=== PATIENT | female | born 1985 | race Caucasian/White ===

== ENCOUNTER 2018-12-06 18:32 | Emergency (ER) | payer BC, OTHER ==
[2018-12-06] MEDS ORDERED: Lidocaine 1% with EPINEPHrine 1:100,000 10 ML MDV INFILT ONE (18:33)
[2018-12-06] MEDS ORDERED: Diphtheria,Pertussis(Acell),Tetanus Vaccine 0.5 ML SDV IM ONE (19:00)
[2018-12-06 19:31] VITALS: BP 115/70
--- NOTE | 2018-12-06 19:38 | EDM.PDOC ---
ED HPI GENERAL MEDICAL PROBLEM - General Chief Complaint: Laceration Stated Complaint: LACERATION ON TOP OF LT HAND Time Seen by Provider: 12/06/18 18:50 Source of Information: Reports: Patient, Family History Limitations: Reports: No Limitations - History of Present Illness INITIAL COMMENTS - FREE TEXT/NARRATIVE: Darlin comes into [facility] ED with lacerations to the L hand from broken glassware while washing dishes this evening. There is some active bleeding, FROM , and CMS intact. Her tetanus vax status needs updating. - Related Data Allergies Allergy/AdvReac Type Severity Reaction Status Date / Time acetaminophen [From Ultracet] Allergy Rash Verified 12/06/18 19:04 tramadol HCl [From Ultracet] Allergy Rash Verified 12/06/18 19:04 Home Meds: Home Meds Levonorgestrel-Ethin Estradiol [Aviane-28 Tablet] 1 tab PO DAILY 01/27/14 [ History] Venlafaxine HCl [Venlafaxine ER] 150 mg PO DAILY 01/27/14 [History] busPIRone [Buspar] 15 mg PO DAILY 01/27/14 [History] ED ROS GENERAL - Review of Systems Review Of Systems: ROS reveals no pertinent complaints other than HPI. ED EXAM, SKIN/RASH Exam: See Below Exam Limited By: No Limitations General Appearance: Alert, WD/WN, No Apparent Distress Head: Normocephalic Neck: Normal Inspection Respiratory/Chest: Lungs Clear Cardiovascular: Regular Rate, Rhythm Back Exam: Normal Inspection Extremities: Other (5 cm and 2.5 cm lacerations to dorsum and ulnar margin of L hand) Neurological: Alert, Oriented, CN II-XII Intact, No Motor/Sensory Deficits Psychiatric: Normal Affect, Normal Mood Skin: Warm, Dry, Other (L hand: 5 cm linear laceration to dorsum; 2.5 cm superficial laceration to ulnar margin of hand) ED SKIN PROCEDURES - Laceration/Wound Repair Left Dorsal Hand Lac/Wound length In cm: 5 Appearance: Subcutaneous, Linear, Clean Distal NVT: Neuro & Vascular Intact Anesthetic Type: Local Local Anesthesia - Lidocaine (Xylocaine): 1% with EPI Local Anesthetic Volume: 4cc Skin Prep: Chlorhexidine (Hibiciens), Sterile Drape Exploration/Debridement/Repair: Wound Explored, No Foreign Material Found Suture Size: 4-0 # of Sutures: 6 Suture Type: Nylon, Interrupted Drain Placement: No Sterile Dressing Applied: Nurse Tetanus Status Addressed: Yes Complications: No Left Medial Hand Lac/Wound length In cm: 2.5 Appearance: Superficial, Linear Distal NVT: Neuro & Vascular Intact Anesthetic Type: Local Local Anesthesia - Lidocaine (Xylocaine): 1% with EPI Local Anesthetic Volume: 2cc Skin Prep: Chlorhexidine (Hibiciens) Exploration/Debridement/Repair: Wound Explored, No Foreign Material Found Suture Size: 4-0 # of Sutures: 2 Suture Type: Nylon, Interrupted Drain Placement: No Sterile Dressing Applied: Nurse Tetanus Status Addressed: Yes Complications: No Course - Vital Signs Text/Narrative:: Patient tolerated procedures well. An Adacel booster was administered. Last Recorded V/S: Last Vital Signs Temp 36.7 C 12/06/18 18:35 Pulse 80 12/06/18 18:35 Resp 17 12/06/18 18:35 BP 115/70 12/06/18 18:35 Pulse Ox 100 12/06/18 18:35 - Orders/Labs/Meds Orders: Active Orders 24 hr Category Date Time Status Vaccines to be Administered [RC] PER UNIT ROUTINE Care 12/06/18 19:00 Active Meds: Medications Discontinued Medications Generic Name Dose Route Start Last Admin Trade Name Freq PRN Reason Stop Dose Admin Diphtheria/Tetanus/Acell Pertussis 0.5 ml 12/06/18 19:00 12/06/18 19:13 Adacel IM 12/06/18 19:01 0.5 ml .ONCE ONE Administration Departure - Departure Time of Disposition: 19:15 Disposition: Home, Self-Care 01 Condition: Good Clinical Impression: Laceration of left hand Qualifiers: Encounter type: initial encounter Foreign body presence: without foreign body Qualified Code(s): S61.412A - Laceration without foreign body of left hand, initial encounter - Discharge Information *PRESCRIPTION DRUG MONITORING PROGRAM REVIEWED*: Not Applicable *COPY OF PRESCRIPTION DRUG MONITORING REPORT IN PATIENT MARIANN: Not Applicable Instructions: Laceration Care, Adult, [id number], Sutured Wound Care, Easy-to -Read Referrals: Estefany Guzman NP [Primary Care Provider] - Forms: ED Department Discharge Additional Instructions: SEE YOUR PRIMARY CARE PROVIDER FOR STITCH REMOVAL AFTER 10 DAYS. - Problem List & Annotations (1) Laceration of left hand SNOMED Code(s): 543444390 Code(s): S61.412A - LACERATION WITHOUT FOREIGN BODY OF LEFT HAND, INIT ENCNTR Status: Acute Current Visit: Yes Annotation/Comment:: Local wound cares, and SR in 10 days. Qualifiers: Encounter type: initial encounter Foreign body presence: without foreign body Qualified Code(s): S61.412A - Laceration without foreign body of left hand, initial encounter - Problem List Review Problem List Initiated/Reviewed/Updated: Yes - My Orders Last 24 Hours: My Active Orders 12/06/18 19:00 Vaccines to be Administered [RC] PER UNIT ROUTINE - Assessment/Plan Last 24 Hours: My Active Orders 12/06/18 19:00 Vaccines to be Administered [RC] PER UNIT ROUTINE Plan: SR in 10 days with PCP.
== END 2018-12-06 19:30 | disposition home or self-care (01) ==
LOC: FB.ED 18:32
DX: S61.412A Laceration without foreign body of left hand, initial encounter (principal); W25.XXXA Contact with sharp glass, initial encounter; Y93.G1 Activity, food preparation and clean up; Z23 Encounter for immunization; Z88.6 Allergy status to analgesic agent; Z79.3 Long term (current) use of hormonal contraceptives; Z79.899 Other long term (current) drug therapy; Z88.5 Allergy status to narcotic agent
CPT/HCPCS: 12002; 12032; 90471; 90472; 90715; 99282-25